=== PATIENT | female | born 1945 | race Caucasian/White ===

== ENCOUNTER → 2017-10-08 10:16 | Outpatient (CLI) | payer MEDICARE | END | disposition home or self-care (01) | LOC: D.RAD 10:16 | DX: R13.10 Dysphagia, unspecified (principal) ==

== ENCOUNTER 2017-12-12 00:58 | Inpatient (IN) | payer MEDICARE ==
[2017-12-12] VITALS (9 sets, daily range): BP systolic 113–158; BP diastolic 52–85; BMI 25.7
[~2017-12-12] VITALS: Ht 160 cm; Wt 65.8 kg
[2017-12-12] MEDS ORDERED: ASPIRIN81 MG PO (01:11)
[2017-12-12] MEDS ORDERED: CARAFATE1 G (01:11)
[2017-12-12] MEDS ORDERED: SOMA350 MG PO (01:12)
[2017-12-12] MEDS ORDERED: FOLIC ACID1 MG PO (01:13)
[2017-12-12] MEDS ORDERED: VASOTEC20 MG PO (01:13)
[2017-12-12] MEDS ORDERED: COUMADIN5 MG PO (01:13)
[2017-12-12] MEDS ORDERED: CYCLOBENZAPRINE5 MG PO (01:13)
[2017-12-12] MEDS ORDERED: NULEV0.125 MG PO (01:14)
[2017-12-12] MEDS ORDERED: ATIVAN0.5 MG PO (01:14)
[2017-12-12] MEDS ORDERED: HYDROCODON-ACE1 EAC7 PO (01:14)
[2017-12-12] MEDS ORDERED: PRILOSEC2.5 MG PO (01:15)
[2017-12-12] MEDS ORDERED: ZANTAC150 MG PO (01:16)
[2017-12-12] MEDS ORDERED: ZOLOFT100 MG PO (01:16)
[2017-12-12] MEDS ORDERED: PROPRANOLOL HCL60 M1 PO (01:16)
[2017-12-12] MEDS ORDERED: ZOCOR40 MG PO (01:16)
[2017-12-12 01:47] LABS: BASOPHILS 0 % (0-2); EOSINOPHILS 0 % (0-7); HEMATOCRIT 26.3 % (36.0-48.0); HEMOGLOBIN 8.8 g/dL (12-16); IMMATURE GRANULOCYTES 0.3 % (0-5); LYMPHOCYTES 10.9 % (15-50); MCH 29.7 pg (26.0-34.0); MCHC 33.5 g/dL (31.0-37.0); MCV 88.9 fL (80.0-100.0); MEAN PLATELET VOLUME 8.4 fL (7.4-10.4); MONOCYTES 9.2 % (2-11); NEUTROPHILS 79.6 % (40-80); RBC 2.96 10x6/uL (4.00-5.40); RDW 15.4 % (11.5-14.5); WBC 11.5 10x3/uL (4.8-10.8)
[2017-12-12 01:52] LABS: PLATELET COUNT 224 10x3/uL (130-400)
[2017-12-12 01:58] LABS: APTT 26.7 SECONDS (22.8-39.4); INR 1.34 (0.85-1.17); PROTIME 16.1 SECONDS (11.6-15.0)
[2017-12-12 02:02] LABS: ANION GAP 15.7 mmol/L (8-16); CALCIUM 8.4 mg/dL (8.5-10.1); CARBON DIOXIDE 26.5 mmol/L (21.0-32.0); CREATININE - SERUM 1.6 mg/dL (0.6-1.3); POTASSIUM - SERUM 4.2 mmol/L (3.5-5.1)
[2017-12-12 06:24] LABS: BASOPHILS 0 % (0-2); EOSINOPHILS 0.2 % (0-7); HEMATOCRIT 23.2 % (36.0-48.0); HEMOGLOBIN 7.7 g/dL (12-16); IMMATURE GRANULOCYTES 0.1 % (0-5); LYMPHOCYTES 11.3 % (15-50); MCH 29.3 pg (26.0-34.0); MCHC 33.2 g/dL (31.0-37.0); MCV 88.2 fL (80.0-100.0); MEAN PLATELET VOLUME 8.5 fL (7.4-10.4); MONOCYTES 8.1 % (2-11); NEUTROPHILS 80.3 % (40-80); PLATELET COUNT 209 10x3/uL (130-400); RBC 2.63 10x6/uL (4.00-5.40); RDW 15.6 % (11.5-14.5); WBC 8.9 10x3/uL (4.8-10.8)
[2017-12-12 06:36] LABS: INR 1.4 (0.85-1.17); PROTIME 16.7 SECONDS (11.6-15.0)
[2017-12-12 06:45] LABS: ANION GAP 13.3 mmol/L (8-16); CALCIUM 7.7 mg/dL (8.5-10.1); CARBON DIOXIDE 25.6 mmol/L (21.0-32.0); CREATININE - SERUM 1.3 mg/dL (0.6-1.3); POTASSIUM - SERUM 3.9 mmol/L (3.5-5.1)
[2017-12-12 12:06] LABS: ALBUMIN 3.4 g/dL (3.4-5.0); BILIRUBIN - DIRECT 0.18 mg/dL (0.00-0.30); BILIRUBIN - INDIRECT 0.52 mg/dL (0.00-1.00); BILIRUBIN - TOTAL 0.7 mg/dL (0.2-1.3); PROTEIN - SERUM 6.7 g/dL (6.4-8.2)
[2017-12-12 13:15] LABS: % SATURATION 8 % (15-55); IRON 20 ug/dl (35-150); TOTAL IRON BIND CAPACITY 250 ug/dl (260-445); UNSAT IRON BIND CAPACITY 230 ug/dl (150-375)
[2017-12-12 13:24] LABS: THYROID STIMULATING HORMONE 1.87 uIU/mL (0.36-3.74)
[2017-12-12 14:20] LABS: HEMATOCRIT 25.5 % (36.0-48.0); HEMOGLOBIN 8.3 g/dL (12-16)
[2017-12-13] VITALS: BP 142/80; BP 167/81
[2017-12-13 04:00] VITALS: BP 182/88
[2017-12-13 05:31] LABS: BASOPHILS 0.1 % (0-2); EOSINOPHILS 3.9 % (0-7); IMMATURE GRANULOCYTES 0.2 % (0-5); INR 1.12 (0.85-1.17); LYMPHOCYTES 9.7 % (15-50); MCH 29.6 pg (26.0-34.0); MCHC 33.9 g/dL (31.0-37.0); MCV 87.3 fL (80.0-100.0); MEAN PLATELET VOLUME 8.9 fL (7.4-10.4); MONOCYTES 7.9 % (2-11); NEUTROPHILS 78.2 % (40-80); PLATELET COUNT 192 10x3/uL (130-400); RDW 15.4 % (11.5-14.5); WBC 9.3 10x3/uL (4.8-10.8)
[2017-12-13 05:34] LABS: HEMOGLOBIN 10.5 g/dL (12-16); RBC 3.55 10x6/uL (4.00-5.40)
[2017-12-13 06:28] LABS: ANION GAP 14.4 mmol/L (8-16); BILIRUBIN - TOTAL 0.56 mg/dL (0.2-1.3); CALCIUM 8.4 mg/dL (8.5-10.1); CARBON DIOXIDE 22.4 mmol/L (21.0-32.0); POTASSIUM - SERUM 3.8 mmol/L (3.5-5.1); PROTEIN - SERUM 6.1 g/dL (6.4-8.2)
[2017-12-13 06:43] LABS: ALBUMIN 2.4 g/dL (3.4-5.0)
[2017-12-13 09:19] VITALS: BP 153/92
[2017-12-13 12:16] VITALS: BP 163/98
[2017-12-13 12:25] LABS: HEMATOCRIT 34.4 % (36.0-48.0); HEMOGLOBIN 11.6 g/dL (12-16)
[2017-12-13 16:16] VITALS: BP 157/93
[2017-12-13 20:00] VITALS: BP 166/106
[2017-12-13 20:03] LABS: HEMATOCRIT 32.9 % (36.0-48.0); HEMOGLOBIN 11.2 g/dL (12-16)
[2017-12-14] VITALS: BP 158/87
[2017-12-14 04:00] VITALS: BP 141/81
[2017-12-14 05:11] LABS: BASOPHILS 0.1 % (0-2); EOSINOPHILS 2.1 % (0-7); HEMATOCRIT 32.8 % (36.0-48.0); HEMOGLOBIN 10.9 g/dL (12-16); IMMATURE GRANULOCYTES 0.2 % (0-5); LYMPHOCYTES 9.9 % (15-50); MCH 29.3 pg (26.0-34.0); MCHC 33.2 g/dL (31.0-37.0); MCV 88.2 fL (80.0-100.0); MEAN PLATELET VOLUME 8.8 fL (7.4-10.4); MONOCYTES 9.5 % (2-11); NEUTROPHILS 78.2 % (40-80); PLATELET COUNT 195 10x3/uL (130-400); RBC 3.72 10x6/uL (4.00-5.40); WBC 9.2 10x3/uL (4.8-10.8)
[2017-12-14 06:57] LABS: ALBUMIN 2.4 g/dL (3.4-5.0); ANION GAP 15.4 mmol/L (8-16); BILIRUBIN - TOTAL 0.6 mg/dL (0.2-1.3); CALCIUM 7.9 mg/dL (8.5-10.1); CARBON DIOXIDE 22.4 mmol/L (21.0-32.0); POTASSIUM - SERUM 3.8 mmol/L (3.5-5.1); PROTEIN - SERUM 5.5 g/dL (6.4-8.2)
[2017-12-14 08:55] VITALS: BP 179/93
[2017-12-14 12:09] LABS: HEMATOCRIT 32.1 % (36.0-48.0)
[2017-12-14 12:52] VITALS: BP 154/92; BP 154/952
[2017-12-14 16:20] VITALS: BP 164/94
[2017-12-14 21:15] VITALS: BP 179/90
[2017-12-15 04:36] VITALS: BP 127/83
[2017-12-15 07:03] LABS: BASOPHILS 0.1 % (0-2); EOSINOPHILS 1.9 % (0-7); HEMATOCRIT 32.3 % (36.0-48.0); HEMOGLOBIN 10.8 g/dL (12-16); IMMATURE GRANULOCYTES 0.7 % (0-5); LYMPHOCYTES 11.6 % (15-50); MCH 29.1 pg (26.0-34.0); MCHC 33.4 g/dL (31.0-37.0); MCV 87.1 fL (80.0-100.0); MEAN PLATELET VOLUME 8.8 fL (7.4-10.4); MONOCYTES 12.8 % (2-11); NEUTROPHILS 72.9 % (40-80); PLATELET COUNT 211 10x3/uL (130-400); RBC 3.71 10x6/uL (4.00-5.40); WBC 8.9 10x3/uL (4.8-10.8)
[2017-12-15 07:35] LABS: ALBUMIN 2.1 g/dL (3.4-5.0); ANION GAP 13.5 mmol/L (8-16); BILIRUBIN - TOTAL 0.54 mg/dL (0.2-1.3); CALCIUM 8.1 mg/dL (8.5-10.1); CARBON DIOXIDE 23.6 mmol/L (21.0-32.0); CREATININE - SERUM 0.8 mg/dL (0.6-1.3); PROTEIN - SERUM 5.9 g/dL (6.4-8.2)
[2017-12-15 07:36] LABS: POTASSIUM - SERUM 3.1 mmol/L (3.5-5.1)
[2017-12-15 08:43] VITALS: BP 141/79
[2017-12-15 13:16] VITALS: BP 145/85
[2017-12-15 13:34] VITALS: Ht 160 cm; Wt 65.8 kg
[2017-12-15 18:06] VITALS: BP 139/79
[2017-12-15 20:00] VITALS: BP 178/105
[2017-12-16 06:59] VITALS: BP 150/92
[2017-12-16 07:18] LABS: BASOPHILS 0 % (0-2); EOSINOPHILS 0.1 % (0-7); HEMATOCRIT 32.9 % (36.0-48.0); HEMOGLOBIN 11.4 g/dL (12-16); IMMATURE GRANULOCYTES 1.3 % (0-5); MCH 29.8 pg (26.0-34.0); MCHC 34.7 g/dL (31.0-37.0); MCV 85.9 fL (80.0-100.0); MEAN PLATELET VOLUME 9.5 fL (7.4-10.4); MONOCYTES 13.2 % (2-11); NEUTROPHILS 78.4 % (40-80); PLATELET COUNT 210 10x3/uL (130-400); RBC 3.83 10x6/uL (4.00-5.40); RDW 15.1 % (11.5-14.5)
[2017-12-16 07:25] LABS: WBC 11.9 10x3/uL (4.8-10.8)
[2017-12-16 07:27] LABS: ALBUMIN 2.4 g/dL (3.4-5.0); ANION GAP 16.2 mmol/L (8-16); BILIRUBIN - TOTAL 0.47 mg/dL (0.2-1.3); CALCIUM 7.7 mg/dL (8.5-10.1); CREATININE - SERUM 0.8 mg/dL (0.6-1.3); POTASSIUM - SERUM 3.2 mmol/L (3.5-5.1); PROTEIN - SERUM 5.6 g/dL (6.4-8.2)
[2017-12-16 09:24] VITALS: BP 147/87
[2017-12-16 12:27] VITALS: BP 155/91
[2017-12-16 16:12] LABS: POTASSIUM - SERUM 3.7 mmol/L (3.5-5.1)
[2017-12-16 16:58] VITALS: BP 128/43
[2017-12-16 21:36] VITALS: BP 157/89
[2017-12-17 06:40] LABS: BASOPHILS 0.1 % (0-2); EOSINOPHILS 2.3 % (0-7); HEMATOCRIT 29.3 % (36.0-48.0); HEMOGLOBIN 9.8 g/dL (12-16); IMMATURE GRANULOCYTES 1.5 % (0-5); LYMPHOCYTES 11.2 % (15-50); MCH 29.2 pg (26.0-34.0); MCHC 33.4 g/dL (31.0-37.0); MCV 87.2 fL (80.0-100.0); MEAN PLATELET VOLUME 8.9 fL (7.4-10.4); MONOCYTES 14.1 % (2-11); NEUTROPHILS 70.8 % (40-80); PLATELET COUNT 204 10x3/uL (130-400); RBC 3.36 10x6/uL (4.00-5.40); RDW 15.4 % (11.5-14.5)
[2017-12-17 06:54] LABS: ALBUMIN 1.9 g/dL (3.4-5.0); ANION GAP 12.1 mmol/L (8-16); BILIRUBIN - TOTAL 0.34 mg/dL (0.2-1.3); CALCIUM 8.2 mg/dL (8.5-10.1); CARBON DIOXIDE 22.8 mmol/L (21.0-32.0); CREATININE - SERUM 0.8 mg/dL (0.6-1.3); POTASSIUM - SERUM 3.9 mmol/L (3.5-5.1); PROTEIN - SERUM 5.5 g/dL (6.4-8.2)
[2017-12-17 08:40] VITALS: BP 143/74
[2017-12-17 12:19] VITALS: BP 152/71
[2017-12-17 16:37] VITALS: BP 123/71
[2017-12-17 17:42] LABS: ERYTHROCYTE SEDIMENTATION RATE 38 mm/hr (0-30)
[2017-12-17 21:13] VITALS: BP 158/91
[2017-12-18 00:15] VITALS: BP 152/76
[2017-12-18 04:54] LABS: BASOPHILS 0.1 % (0-2); EOSINOPHILS 2.5 % (0-7); HEMATOCRIT 27.4 % (36.0-48.0); HEMOGLOBIN 9.3 g/dL (12-16); IMMATURE GRANULOCYTES 1.1 % (0-5); LYMPHOCYTES 10.3 % (15-50); MCH 29.4 pg (26.0-34.0); MCHC 33.9 g/dL (31.0-37.0); MCV 86.7 fL (80.0-100.0); MEAN PLATELET VOLUME 8.8 fL (7.4-10.4); MONOCYTES 13.8 % (2-11); NEUTROPHILS 72.2 % (40-80); PLATELET COUNT 197 10x3/uL (130-400); RBC 3.16 10x6/uL (4.00-5.40); RDW 15.2 % (11.5-14.5); WBC 7.5 10x3/uL (4.8-10.8)
[2017-12-18 05:20] LABS: CALC OSMOLALITY 270 mosm/kg (275-300); CALCIUM 7.9 mg/dL (8.5-10.1); CARBON DIOXIDE 23.3 mmol/L (21.0-32.0); CHLORIDE - SERUM 104 mmol/L (98-107); CREATININE - SERUM 0.7 mg/dL (0.6-1.3); GLUCOSE 104 mg/dL (74-106); POTASSIUM - SERUM 3.5 mmol/L (3.5-5.1); PRE-ALBUMIN 8.5 mg/dL (18.0-35.7); SODIUM 135 mmol/L (136-145); UREA NITROGEN 15 mg/dL (7-18); eGFR NON AFRICAN AMERICAN 87 mL/min (90-120)
[2017-12-18 05:51] VITALS: BP 150/64
[2017-12-18 20:00] VITALS: BP 156/85
[2017-12-19 04:00] VITALS: BP 165/103
[2017-12-19 04:47] LABS: BASOPHILS 0 % (0-2); EOSINOPHILS 0 % (0-7); HEMATOCRIT 31.9 % (36.0-48.0); IMMATURE GRANULOCYTES 0.8 % (0-5); LYMPHOCYTES 3.3 % (15-50); MCH 29.6 pg (26.0-34.0); MCHC 34.5 g/dL (31.0-37.0); MCV 85.8 fL (80.0-100.0); MEAN PLATELET VOLUME 8.7 fL (7.4-10.4); MONOCYTES 2.1 % (2-11); NEUTROPHILS 93.8 % (40-80); PLATELET COUNT 229 10x3/uL (130-400); RBC 3.72 10x6/uL (4.00-5.40)
[2017-12-19 04:52] LABS: ANION GAP 14.5 mmol/L (8-16); CALCIUM 8.4 mg/dL (8.5-10.1); CREATININE - SERUM 0.8 mg/dL (0.6-1.3); POTASSIUM - SERUM 3.5 mmol/L (3.5-5.1)
[2017-12-19 05:32] VITALS: BP 145/90
[2017-12-19 08:30] VITALS: BP 150/118
[2017-12-19 16:32] VITALS: BP 178/102
[2017-12-19 20:00] VITALS: BP 178/112
[2017-12-20] VITALS: BP 162/94
[2017-12-20 04:00] VITALS: BP 146/89
[2017-12-20 09:24] VITALS: BP 161/99
[2017-12-20] MEDS ORDERED: LEVAQUIN750 MG PO (11:25)
[2017-12-20] MEDS ORDERED: KEFLEX500 MG PO (11:26)
[2017-12-20] MEDS ORDERED: FLAGYL500 MG PO (11:26)
[2017-12-20] MEDS ORDERED: PROBIOTIC250 MG PO (11:27)
[2017-12-20 18:12] VITALS: BP 158/91
[2017-12-20 20:20] VITALS: BP 149/101
[2017-12-21 00:15] VITALS: BP 182/95
[2017-12-21 08:41] VITALS: BP 183/94
[2017-12-21 09:38] LABS: BASOPHILS 0.1 % (0-2); EOSINOPHILS 2.2 % (0-7); HEMATOCRIT 29.8 % (36.0-48.0); HEMOGLOBIN 10.1 g/dL (12-16); IMMATURE GRANULOCYTES 1.1 % (0-5); LYMPHOCYTES 9.5 % (15-50); MCH 29.3 pg (26.0-34.0); MCHC 33.9 g/dL (31.0-37.0); MCV 86.4 fL (80.0-100.0); MEAN PLATELET VOLUME 8.8 fL (7.4-10.4); MONOCYTES 8.2 % (2-11); NEUTROPHILS 78.9 % (40-80); PLATELET COUNT 250 10x3/uL (130-400); RBC 3.45 10x6/uL (4.00-5.40); RDW 15.6 % (11.5-14.5); WBC 10.7 10x3/uL (4.8-10.8)
[2017-12-21 09:45] LABS: ANION GAP 8.1 mmol/L (8-16); CALCIUM 7.9 mg/dL (8.5-10.1); CARBON DIOXIDE 25.1 mmol/L (21.0-32.0); CREATININE - SERUM 0.8 mg/dL (0.6-1.3); POTASSIUM - SERUM 3.2 mmol/L (3.5-5.1)
[2017-12-21 11:58] VITALS: BP 163/97
[2017-12-21 20:32] VITALS: BP 157/85
[2017-12-22 00:44] VITALS: BP 166/90
[2017-12-22 04:26] VITALS: BP 148/86
[2017-12-22 06:18] LABS: BASOPHILS 0.2 % (0-2); EOSINOPHILS 1.6 % (0-7); HEMATOCRIT 30.6 % (36.0-48.0); HEMOGLOBIN 10.5 g/dL (12-16); IMMATURE GRANULOCYTES 1.5 % (0-5); LYMPHOCYTES 9.9 % (15-50); MCH 29.5 pg (26.0-34.0); MCHC 34.3 g/dL (31.0-37.0); MEAN PLATELET VOLUME 9.1 fL (7.4-10.4); MONOCYTES 10.1 % (2-11); NEUTROPHILS 76.7 % (40-80); PLATELET COUNT 287 10x3/uL (130-400); RBC 3.56 10x6/uL (4.00-5.40); RDW 15.5 % (11.5-14.5); WBC 12.3 10x3/uL (4.8-10.8)
[2017-12-22 06:40] LABS: CARBON DIOXIDE 24.7 mmol/L (21.0-32.0); CHLORIDE - SERUM 104 mmol/L (98-107); GLUCOSE 108 mg/dL (74-106); SODIUM 140 mmol/L (136-145)
[2017-12-22 06:45] LABS: CALC OSMOLALITY 278 mosm/kg (275-300); CREATININE - SERUM 0.5 mg/dL (0.6-1.3); UREA NITROGEN 11 mg/dL (7-18); eGFR NON AFRICAN AMERICAN > 90 mL/min (90-120)
[2017-12-22 08:10] VITALS: BP 172/102
[2017-12-22 10:56] LABS: MAGNESIUM - SERUM 1.2 mg/dL (1.8-2.4); PHOSPHOROUS 2.7 mg/dL (2.5-4.9)
[2017-12-22 13:16] VITALS: BP 180/107
[2017-12-22 16:26] VITALS: BP 147/90
[2017-12-22 21:46] VITALS: BP 140/85
[2017-12-23 05:15] VITALS: BP 151/96
[2017-12-23 06:28] LABS: BASOPHILS 0.1 % (0-2); HEMATOCRIT 28.8 % (36.0-48.0); HEMOGLOBIN 9.8 g/dL (12-16); IMMATURE GRANULOCYTES 1.8 % (0-5); LYMPHOCYTES 10.4 % (15-50); MCH 29.4 pg (26.0-34.0); MCV 86.5 fL (80.0-100.0); MONOCYTES 11.2 % (2-11); NEUTROPHILS 74.5 % (40-80); PLATELET COUNT 287 10x3/uL (130-400); RBC 3.33 10x6/uL (4.00-5.40); RDW 15.8 % (11.5-14.5); WBC 10.8 10x3/uL (4.8-10.8)
[2017-12-23 06:53] LABS: CALC OSMOLALITY 275 mosm/kg (275-300); CALCIUM 7.8 mg/dL (8.5-10.1); CHLORIDE - SERUM 107 mmol/L (98-107); CREATININE - SERUM 0.6 mg/dL (0.6-1.3); GLUCOSE 86 mg/dL (74-106); POTASSIUM - SERUM 3.4 mmol/L (3.5-5.1); SODIUM 139 mmol/L (136-145); UREA NITROGEN 10 mg/dL (7-18); eGFR NON AFRICAN AMERICAN > 90 mL/min (90-120)
[2017-12-23 08:40] VITALS: BP 117/58
[2017-12-23 20:00] VITALS: BP 98/45
[2017-12-23 22:27] LABS: APPEARANCE CLEAR (CLEAR); BILIRUBIN NEGATIVE (NEGATIVE); COLOR YELLOW (YELLOW); GLUCOSE NEGATIVE (NEGATIVE); KETONE SMALL mg/dL (NEGATIVE); NITRITE NEGATIVE (NEGATIVE); PROTEIN NEGATIVE (NEGATIVE); UROBILINOGEN NORMAL (NORMAL)
[2017-12-24 04:56] VITALS: BP 159/101
[2017-12-24 06:42] LABS: BASOPHILS 0.2 % (0-2); EOSINOPHILS 2.4 % (0-7); HEMATOCRIT 31.1 % (36.0-48.0); HEMOGLOBIN 10.3 g/dL (12-16); IMMATURE GRANULOCYTES 1.9 % (0-5); LYMPHOCYTES 11.3 % (15-50); MCH 28.9 pg (26.0-34.0); MCHC 33.1 g/dL (31.0-37.0); MCV 87.1 fL (80.0-100.0); MEAN PLATELET VOLUME 9.1 fL (7.4-10.4); MONOCYTES 11.9 % (2-11); NEUTROPHILS 72.3 % (40-80); PLATELET COUNT 324 10x3/uL (130-400); RBC 3.57 10x6/uL (4.00-5.40); WBC 10.8 10x3/uL (4.8-10.8)
[2017-12-24 07:33] LABS: CALC OSMOLALITY 280 mosm/kg (275-300); CALCIUM 8.2 mg/dL (8.5-10.1); CARBON DIOXIDE 22.2 mmol/L (21.0-32.0); CHLORIDE - SERUM 107 mmol/L (98-107); CREATININE - SERUM 0.7 mg/dL (0.6-1.3); GLUCOSE 100 mg/dL (74-106); POTASSIUM - SERUM 3.3 mmol/L (3.5-5.1); SODIUM 142 mmol/L (136-145); eGFR NON AFRICAN AMERICAN 87 mL/min (90-120)
[2017-12-24 07:34] LABS: UREA NITROGEN 7 mg/dL (7-18)
[2017-12-24 08:13] VITALS: BP 159/99
[2017-12-24 12:04] VITALS: BP 195/121
[2017-12-24 14:20] LABS: CKMB 2.5 U/L (0.0-3.6); CREATINE KINASE 71 UL (21-215); TROPONIN-I 0.043 ng/mL (0.000-0.060)
[2017-12-24 15:24] VITALS: BP 131/79
[2017-12-24 20:00] VITALS: BP 155/103
[2017-12-24 21:41] LABS: CKMB 2.1 U/L (0.0-3.6); CREATINE KINASE 66 UL (21-215); TROPONIN-I 0.038 ng/mL (0.000-0.060)
[2017-12-25] VITALS: BP 167/99
[2017-12-25 01:12] LABS: CREATINE KINASE 71 UL (21-215); TROPONIN-I 0.031 ng/mL (0.000-0.060)
[2017-12-25 04:00] VITALS: BP 170/107
[2017-12-25 06:05] LABS: BASOPHILS 0.2 % (0-2); EOSINOPHILS 2.9 % (0-7); HEMATOCRIT 29.5 % (36.0-48.0); HEMOGLOBIN 9.8 g/dL (12-16); IMMATURE GRANULOCYTES 1.9 % (0-5); LYMPHOCYTES 11.3 % (15-50); MCH 29.3 pg (26.0-34.0); MCHC 33.2 g/dL (31.0-37.0); MCV 88.1 fL (80.0-100.0); MONOCYTES 11.9 % (2-11); NEUTROPHILS 71.8 % (40-80); PLATELET COUNT 298 10x3/uL (130-400); RBC 3.35 10x6/uL (4.00-5.40); RDW 16.3 % (11.5-14.5); WBC 8.2 10x3/uL (4.8-10.8)
[2017-12-25 06:25] LABS: ANION GAP 12.6 mmol/L (8-16); CALCIUM 8.1 mg/dL (8.5-10.1); CARBON DIOXIDE 23.8 mmol/L (21.0-32.0); POTASSIUM - SERUM 3.4 mmol/L (3.5-5.1)
[2017-12-25 06:27] LABS: CREATININE - SERUM 0.9 mg/dL (0.6-1.3)
[2017-12-25 08:24] VITALS: BP 154/103
[2017-12-25 12:22] VITALS: BP 145/89
[2017-12-25 15:52] VITALS: BP 155/97
[2017-12-25 20:00] VITALS: BP 152/94
[2017-12-26] VITALS: BP 176/108
[2017-12-26 04:00] VITALS: BP 176/99
[2017-12-26 06:44] LABS: ANION GAP 15.3 mmol/L (8-16); CALCIUM 8.2 mg/dL (8.5-10.1); CARBON DIOXIDE 21.6 mmol/L (21.0-32.0); CREATININE - SERUM 0.9 mg/dL (0.6-1.3); POTASSIUM - SERUM 3.9 mmol/L (3.5-5.1)
[2017-12-26 07:34] LABS: BASOPHILS 0.2 % (0-2); EOSINOPHILS 2.6 % (0-7); HEMOGLOBIN 9.5 g/dL (12-16); IMMATURE GRANULOCYTES 1.2 % (0-5); LYMPHOCYTES 13.3 % (15-50); MCH 28.7 pg (26.0-34.0); MCHC 32.8 g/dL (31.0-37.0); MCV 87.6 fL (80.0-100.0); MEAN PLATELET VOLUME 9.4 fL (7.4-10.4); MONOCYTES 11.8 % (2-11); NEUTROPHILS 70.9 % (40-80); PLATELET COUNT 337 10x3/uL (130-400); RBC 3.31 10x6/uL (4.00-5.40); RDW 16.7 % (11.5-14.5); WBC 8.1 10x3/uL (4.8-10.8)
[2017-12-26 08:57] VITALS: BP 157/93
== END 2017-12-26 21:24 | disposition home or self-care (01) | DRG 392 ==
LOC: D.ER 00:58 → D.EDHOLD 01:56 → D.MS 01:56 → D.SDCHOLD 12-13 05:14 → D.MS 12-14 13:43
PROVIDERS: Emergency Medicine; Family Medicine; Family Medicine Adult Medicine; Internal Medicine Gastroenterology; Internal Medicine Hematology & Oncology; Internal Medicine Nephrology; Orthopaedic Surgery
PROC: 02HV33Z Insertion of Infusion Device into Superior Vena Cava, Percutaneous Approach (ICD-10-PCS; principal; 2017-12-16)
PROC: B548ZZA Ultrasonography of Superior Vena Cava, Guidance (ICD-10-PCS; 2017-12-16)
DX: K52.9 Noninfective gastroenteritis and colitis, unspecified (principal); D62 Acute posthemorrhagic anemia; D68.4 Acquired coagulation factor deficiency; E44.0 Moderate protein-calorie malnutrition; I82.612 Acute embolism and thrombosis of superficial veins of left upper extremity; K57.92 Diverticulitis of intestine, part unspecified, without perforation or abscess without bleeding; L03.113 Cellulitis of right upper limb; K21.9 Gastro-esophageal reflux disease without esophagitis; R13.10 Dysphagia, unspecified; K22.2 Esophageal obstruction; E86.0 Dehydration; I10 Essential (primary) hypertension; E87.6 Hypokalemia; Z85.89 Personal history of malignant neoplasm of other organs and systems; Z68.25 Body mass index [BMI] 25.0-25.9, adult; T45.515A Adverse effect of anticoagulants, initial encounter; G47.33 Obstructive sleep apnea (adult) (pediatric); K59.00 Constipation, unspecified

== ENCOUNTER → 2017-12-31 13:30 | Outpatient (CLI) | payer MEDICARE ==
[2017-12-15 13:34] VITALS: BMI 25.6
[~2017-12-31 13:30] MED LIST: ASPIRIN81 MG PO; ATIVAN0.5 MG PO; CARAFATE1 G; COUMADIN5 MG PO; CYCLOBENZAPRINE5 MG PO; FLAGYL500 MG PO; FOLIC ACID1 MG PO; HYDROCODON-ACE1 EAC7 PO; KEFLEX500 MG PO; LEVAQUIN750 MG PO; NULEV0.125 MG PO; PRILOSEC2.5 MG PO; PROBIOTIC250 MG PO; PROPRANOLOL HCL60 M1 PO; SOMA350 MG PO; VASOTEC20 MG PO; ZANTAC150 MG PO; ZOCOR40 MG PO; ZOLOFT100 MG PO
== END | disposition home or self-care (01) ==
LOC: D.CT 13:30
DX: S09.90XA Unspecified injury of head, initial encounter (principal); X58.XXXA Exposure to other specified factors, initial encounter

== ENCOUNTER → 2018-01-29 14:48 | Outpatient (CLI) | payer MEDICARE ==
[2017-12-15 13:34] VITALS: BMI 25.6
[2018-01-29 15:22] LABS: INR 1.12 (0.85-1.17)
== END | disposition home or self-care (01) ==
LOC: D.LABREF 14:48
PROVIDERS: Family Medicine
DX: Z51.81 Encounter for therapeutic drug level monitoring (principal); Z79.01 Long term (current) use of anticoagulants